=== PATIENT | male | born 1955 | race Caucasian/White ===

== ENCOUNTER → 2024-10-07 | Outpatient (CLI) | payer MEDICARE, MEDICAID, SELFPAY ==
[2024-10-07 16:07] LABS: Alanine Aminotransferase 11 U/L (10-49); Albumin, Serum 4.2 gm/dL (3.4-4.8); Albumin/Globulin Ratio 1.6 (1.2-2.2); Alkaline Phosphatase 110 U/L (46-116); Anion Gap 9 (7-16); Aspartate Amino Transferase 20 U/L (0-34); BUN/Creatinine Ratio 12 Ratio (12-20); Bilirubin,Total 0.4 mg/dL (0.3-1.2); Blood Urea Nitrogen 13 mg/dL (9-23); Calcium 9.9 mg/dL (8.3-10.6); Calcium (Corrected) 9.9 mg/dL (8.5-10.1); Carbon Dioxide 24.4 mMol/L (20.0-31.0); Chloride 109 mMol/L (98-107); Creatinine (Component) 1.1 mg/dL (0.6-1.3); Globulin 2.6 gm/dL (2.3-3.5); Glucose 85 mg/dL (74-106); Osmolality,Calculated 282 (275-295); Potassium 3.8 mMol/L (3.4-5.1); Sodium 142 mMol/L (136-145); Total Protein 6.8 gm/dL (5.7-8.2); eGFR > 60 See Note
== END | disposition home or self-care (01) ==
LOC: COPL 15:15
PROVIDERS: PCP Nurse Practitioner Family; Referring Provider Nurse Practitioner Family; Visit Provider Nurse Practitioner Family
DX: Z01.812 Encounter for preprocedural laboratory examination (principal)
CPT/HCPCS: 36415; 80053

== ENCOUNTER → 2024-10-08 | Outpatient (CLI) | payer MEDICARE, MEDICAID, SELFPAY ==
--- NOTE | 2024-10-08 | XR_ITS ---
Examination: CT abdomen with intravenous contrast CT pelvis with intravenous contrast 2-D coronal reconstructions 2-D sagittal reconstructions Date and time of exam:September 28, 2024 1156 hours Comparison November 10, 2023 INDICATIONS: Diagnosis of ulcerative colitis 2 years ago, hematuria and elevated PSA the last months. CTDI: vol (mGy) 10.3 DLP: (mGycm) 6 7060 Technique: Multiple axial sections of the abdomen and pelvis have been obtained. 64 slice high-resolution scanner used. 3 mm axial sections have been obtained, post intravenous injection 60 cc [id number] 2-D sagittal, coronal reconstructions obtained. Low dose protocols were performed. One or more of the following dose reduction techniques were used; automated exposure control, adjustment of the mA and/or KV according to patient size, use of iterative reconstruction technique. Findings: No focal liver or splenic lesions Absent gallbladder No pancreatic or adrenal mass No renal or ureteral calculi, no hydronephrosis Aorta normal size No bowel obstruction Normal appendix No diverticulitis Fat deposition in the colonic booth consistent with prior nonspecific colitis Transverse prostate dimension 4.2 cm Intact urinary bladder Significant osteopenia IMPRESSION: No renal or ureteral calculi, no hydronephrosis Findings of prior nonspecific diffuse colitis pattern
== END | disposition home or self-care (01) ==
LOC: CCTX 10:23
PROVIDERS: Referring Provider Nurse Practitioner Family; Visit Provider Nurse Practitioner Family
DX: D64.9 Anemia, unspecified (principal)
CPT/HCPCS: 74177; A4649; Q9967

== ENCOUNTER 2024-11-14 12:43 | Emergency (ER) | payer MEDICARE, MEDICAID, SELFPAY ==
--- NOTE | 2024-11-14 13:06 | XR_ITS ---
Examination: CT brain head without contrast. 2-D sagittal coronal reconstructions Date and time of exam:November 14, 2024 1432 hours COMPARISON: August 18, 2023 INDICATIONS: Headaches dizziness today, history CVA CTDI: vol (mGy):49.4 DLP: (mGycm):1024 Technique: Multiple CT axial sections of the brain have been obtained, 5 mm slice thickness. Contrast has not been administered. 2-D sagittal, coronal reconstructions have been obtained Low dose protocols were performed. One or more of the following dose reduction techniques were used; automated exposure control, adjustment of the mA and/or KV according to patient size, use of iterative reconstruction technique. Findings: No significant ventricular enlargement. Intra-axial or extra-axial hemorrhage density is not seen. No mass effect or midline shift Basal cisterns are not remarkable. Fourth ventricle is midline. Cranial vault intact. Impression: Negative for acute hemorrhage, mass effect or midline shift Clinical correlation advised and follow-up accordingly
--- NOTE | 2024-11-14 13:06 | EKG_ITS ---
[facility] Test Date: 2024-11-14 Pat Name: NINA HOUSER Department: Room: - Gender: Male Tax Expert: : 1955 Requested By: Andres Ingram (LAMINATING MACHINE OFFBEARER) Order Number: [id number] Reading MD: Andres Ingram (LAMINATING MACHINE OFFBEARER) Measurements Intervals Normanna Rate: 66 P: 14 WV: 173 QRS: -28 QRSD: 105 T: 33 QT: 378 QTc: 398 Interpretive Statements SINUS RHYTHM BORDERLINE LEFT AXIS DEVIATION [QRS AXIS < -20] VOLTAGE CRITERIA FOR LVH [MEETS CRITERIA IN ONE OF: R(aVL), S(V1), R(V5), R(V5/V6)+S(V1)] NONSPECIFIC T-WAVE ABNORMALITY Compared to ECG 08/18/2023 15:23:01 Sinus tachycardia no longer present Possible ischemia no longer present T-wave abnormality still present /store/S0/[id number]/ecg/[id number].pdf
--- NOTE | 2024-11-14 13:06 | XR_ITS ---
Examination: PA lateral chest 2 views TECHNIQUE: Upright PA lateral chest 2 views Exam date and time: November 14, 2024 1316 hours INDICATIONS: Chest pain dizziness today. FINDINGS: Normal heart size No pneumonia Mild accentuation basilar bronchovascular markings Stable small granuloma in the right upper lobe IMPRESSION: Mild basilar bronchitis pattern
[2024-11-14 13:09] VITALS: BP 150/85; PULSE 78; RESP 20; TEMP 36.7; O2SAT 95; BMI 31.6
--- NOTE | 2024-11-14 13:09 | PD.EDRME ---
Rapid Medical Screening Exam RME Arrival date/time: 11/14/24 12:43 68-year-old male presents emergency department with complaints of dizziness and elevated BP since Monday patient was seen by PCP and referred to the ER for further evaluation Chief Complaint: Dizziness
[2024-11-14 13:31] LABS: Basophils # (Auto) 0.1 Thou/mm3 (0.0-0.2); Basophils % (Auto) 1 % (0-2.5); Eosinophils # (Auto) 0.2 Thou/mm3 (0.0-0.5); Eosinophils % (Auto) 2 % (0-10); Hematocrit 41.5 % (41.0-53.0); Hemoglobin 12.9 g/dL (13.5-16.0); Immature Granulocytes % (Auto) 1 % (0-0); Immature Granulocytes Auto 0.05 Thou/mm3 (0.00-0.00); Lymphocytes # (Auto) 2.7 Thou/mm3 (1.0-4.8); Lymphocytes % (Auto) 25 % (10-50); Mean Corpuscular HGB Conc 31.1 g/dl (31.0-37.0); Mean Corpuscular Hemoglobin 24.6 pg (25.0-35.0); Mean Corpuscular Volume 79 fL (80-100); Monocytes # (Auto) 0.8 Thou/mm3 (0.0-0.8); Monocytes % (Auto) 8 % (0-12); Neutrophils % (Auto) 64 % (37-80); Nucleated Red Blood Cell % 0 /100 WBC (0); Platelet Count 305 Thou/mm3 (140-440); RDW Standard Deviation 57.1 fL (35.1-43.9); Red Blood Count 5.24 Miln/mm3 (4.50-5.90); White Blood Count 10.8 Thou/mm3 (3.8-10.6)
[2024-11-14 13:45] LABS: Partial Thromboplastin Time 29.8 Seconds (22.0-36.0); Prothrombin Time 10.9 Seconds (9.0-12.2)
[2024-11-14 13:48] LABS: B-Type Natriuretic Peptide < 20 pg/mL (0-100)
[2024-11-14 13:50] LABS: Alanine Aminotransferase 13 U/L (10-49); Albumin, Serum 4.5 gm/dL (3.4-4.8); Albumin/Globulin Ratio 1.6 (1.2-2.2); Alkaline Phosphatase 99 U/L (46-116); Anion Gap 9 (7-16); Aspartate Amino Transferase 24 U/L (0-34); BUN/Creatinine Ratio 13 Ratio (12-20); Bilirubin,Total 0.6 mg/dL (0.3-1.2); Blood Urea Nitrogen 15 mg/dL (9-23); Calcium 10.4 mg/dL (8.3-10.6); Calcium (Corrected) 10.4 mg/dL (8.5-10.1); Carbon Dioxide 27.5 mMol/L (20.0-31.0); Chloride 105 mMol/L (98-107); Creatinine (Component) 1.2 mg/dL (0.6-1.3); Estimated Creatinine Clearance 66.8 mL/min (>60); Globulin 2.9 gm/dL (2.3-3.5); Glucose 109 mg/dL (74-106); Magnesium 2.1 mg/dL (1.6-2.6); Osmolality,Calculated 283 (275-295); Sodium 141 mMol/L (136-145); Total Protein 7.4 gm/dL (5.7-8.2); Troponin I < 0.020 ng/mL (0.0-0.045); eGFR > 60 See Note
[2024-11-14 14:15] LABS: Amphetamine/Methamp Scrn,U Negative (Negative); Barbiturate Screen,Urine Negative (Negative); Benzodiazepines Screen,Urine Negative (Negative); Benzoylecgonine Screen, Ur Negative (Negative); Fentanyl Screen,Urine Negative (Negative); Opiate Screen,Urine Negative (Negative); THC Screen,Urine Negative (Negative)
[2024-11-14 16:37] VITALS: BP 170/83; PULSE 78; RESP 16; TEMP 36.5; O2SAT 96
--- NOTE | 2024-11-14 17:00 | EDNOTE_ITS ---
ED Dizzyness RME/HPI General Chief Complaint: Dizziness Stated Complaint: DIZZY X MONDAY WITH ELEVATED BP Time Seen by Provider: 11/14/24 16:56 Arrival date/time: 11/14/24 12:43 RME / HPI RME / HPI Narrative: 68-year-old male patient with significant history of hypertension, came in for evaluation regarding intermittent dizziness. Onset of symptoms since Monday as on and off dizziness, described as everything spinning, lasting for several minutes. Patient is also worried because his blood pressure is slightly elevated. Denies any headache denies any chest pain denies any neck pain. Was seen by PCP and referred here for further evaluation. Patient is ambulatory denies any head trauma or fall. Denies any fever. Related Data Home Medications ?Medication ?Instructions ?Recorded ?Confirmed Amlodipine Besylate 10 mg PO QDAY ##30 03/22/16 08/05/24 carvedilol 3.125 mg tablet 3.125 mg PO BID 12/06/21 08/05/24 folic acid 1 mg tablet 1 mg PO DAILY 08/19/23 08/05/24 atorvastatin 40 mg tablet 80 mg PO DAILY 07/11/24 08/05/24 ferrous sulfate 325 mg (65 mg 325 mg PO TID 08/05/24 08/05/24 iron) tablet Previous Rx's ?Medication ?Instructions ?Recorded azathioprine 50 mg tablet (Imuran) 50 mg PO BID #60 tabs 12/06/21 sulfasalazine 500 mg 1 g (2 x 500 mg) PO BID #120 tabs 12/06/21 tablet,delayed release prednisone 5 mg tablet See Taper PO QDAY #94 tabs 08/21/23 lisinopril 20 mg tablet 20 mg PO QDAY #30 tabs 07/11/24 dutasteride 0.5 mg-tamsulosin ER 1 cap PO QDAY #30 caps 08/05/24 0.4 mg capsule ext.release 24hr mphas dutasteride 0.5 mg capsule 0.5 mg PO QDAY #90 caps 08/08/24 tamsulosin 0.4 mg capsule 0.4 mg PO QDAY #90 caps 08/08/24 furosemide 40 mg tablet (Lasix) 40 mg PO QAM #90 tabs 08/28/24 meclizine 50 mg tablet 50 mg PO BID PRN dizziness #20 tabs 11/14/24 Allergies Allergy/AdvReac Type Severity Reaction Status Date / Time No Known Allergies Allergy Verified 11/14/24 12:45 Review of Systems Review of Systems Narrative Review of Systems: Review of system reviewed and within normal limits except mentioned in HPI ED Exam Narrative Physical exam: VITAL SIGNS: Reviewed. GENERAL APPEARANCE: Alert and interactive, follows commands, no acute distress, HEAD AND FACE: Non-traumatic. ENT: PERRL, pink conjunctivitis, eyelid no trauma, Mucous membrane moist. NECK: Supple, nontender, no nuchal rigidity. CHEST: No tenderness, no crepitus, no paradoxical movement, no retractions. LUNGS: Clear, well ventilated, symmetric, no rales, no wheezing, no ronchi, no stridor, good breath sounds bilaterally. HEART: Regular rate, regular rhythm, no murmur, no gallops. ABDOMEN: Soft, positive bowel sounds, nondistended, no guarding, nontender, no rebound, no masses, RECTAL: Deferred. GENITAL: Deferred. NEUROLOGICAL: Gross motor function intact sensory function intact, Appropriate for age. MUSCULOSKELETAL: low back nontender, full range of motion. EXTREMITIES: Nontender, full range of motion. SKIN: Color pink, dry, no rash, no lacerations, no abrasions, no contusions. LYMPHATICS: Deferred. Course Quality Measures none Orders Category Date Time Status EKG (ED ONLY) *Do not use* NOW Care 11/14/24 13:[address] head/brain wo con Stat Exams 11/14/24 13:06 Completed EKG (ED Only) Stat Exams 11/14/24 13:06 Draft XR chest 2V Stat Exams 11/14/24 13:06 Completed B-Type Natriuretic Peptide Stat Lab 11/14/24 13:13 Completed CBC Stat Lab 11/14/24 13:13 Completed Comprehensive Metabolic Panel Stat Lab 11/14/24 13:13 Completed Drug Screen,Urine Stat Lab 11/14/24 13:33 Completed Magnesium Stat Lab 11/14/24 13:13 Completed Partial Thromboplastin Time Stat Lab 11/14/24 13:13 Completed Prothrombin Time with INR Stat Lab 11/14/24 13:13 Completed Troponin I Stat Lab 11/14/24 13:13 Completed Vital Signs Vital signs: Vital Signs Temperature 98.1 F 11/14/24 13:09 Pulse Rate 78 11/14/24 13:09 Respiratory Rate 20 11/14/24 13:09 Blood Pressure 150/85 H 11/14/24 13:09 Pulse Oximetry (%) 95 11/14/24 13:09 Oxygen Delivery Method Room Air 11/14/24 13:09 Dizziness MDM Narrative MDM Narrative:: 68-year-old male patient with significant history of hypertension, came in for evaluation regarding intermittent dizziness. Onset of symptoms since Monday as on and off dizziness, described as everything spinning, lasting for several minutes. Patient is also worried because his blood pressure is slightly elevated. Denies any headache denies any chest pain denies any neck pain. Was seen by PCP and referred here for further evaluation. Patient is ambulatory den ies any head trauma or fall. Denies any fever. CT scan of the head came back unremarkable. Patient's workup also today came back normal. Troponin was not normal. Chest x-ray came back unremarkable. Patient data External records reviewed:: None Clinical information provided by:: patient Social determinants that could affect healthcare access:: none Patient has the following chronic illnesses:: Hypertension How is presenting disease/condition affected by chronic disease/condition?: exacerbated by Evaluation data The following diagnostics were reviewed and interpreted by me:: radiology exam(s) Lab and/or radiology exams considered but not ordered:: None Interpretation Summary: Patient's workup today all came back unremarkable CT scan of the head came back unremarkable EKG as interpreted by me showed normal sinus rhythm, ventricular rate of 66 bpm, no ST segment elevation depression noted. Chest x-ray showed possible bronchitis pattern no infiltrates no pneumothorax pneumothorax noted. Medications / Prescriptions Medications or Prescriptions considered but not ordered:: None none Medication administrations:: None Consultations Consultation(s) initiated? (list below): No Diagnosis Dizziness Differential Diagnosis: benign paroxysmal positional vertigo and cerebrovascular accident Most likely diagnosis given after review of the tests above:: Dizziness, hypertension Admission Indicated Admission indicated?: not indicated Admission Request Was there a request for admission?: No Disposition Plan Disposition Plan: Discharge Discharge Attestation Discharge Attestation: The patient was given an opportunity to ask questions and understood the discharge instructions. Discharge instructions specifically effects, indications for sooner follow up or return to the emergency department, and the expected course of current diagnosis. Patient condition: Stable Discharge Plan Plan Patient Disposition: HOME (Self Care) Disposition Comment: stable Prescriptions/Referrals Prescriptions/Med Rec: New meclizine 50 mg tablet 50 mg PO BID PRN (Reason: dizziness) Qty: 20 0RF No Action ferrous sulfate 325 mg (65 mg iron) tablet 325 mg PO TID dutasteride-tamsulosin 0.5-0.4 mg capsule, ER multiphase 24 hr 1 cap PO QDAY Qty: 30 0RF dutasteride 0.5 mg capsule 0.5 mg PO QDAY Qty: 90 0RF tamsulosin 0.4 mg capsule 0.4 mg PO QDAY Qty: 90 0RF lisinopril 20 mg tablet 20 mg PO QDAY Qty: 30 0RF Rx Instructions: 20 MG PO QDAY Amlodipine Besylate 10 mg tablet 10 mg PO QDAY Qty: 30 Rx Instructions: 10 mg PO QDAY furosemide [Lasix] 40 mg tablet 40 mg PO QAM Qty: 90 0RF carvedilol 3.125 mg tablet 3.125 mg PO BID Patient Comments: TAKE 1 TABLET BY MOUTH TWICE A DAY sulfasalazine 500 mg Tablet,Delayed Release (Dr/Ec) 1 g PO BID Qty: 120 3RF Rx Instructions: Take 2 tabs by mouth twice daily azathioprine [Imuran] 50 mg Tablet 50 mg PO BID Qty: 60 3RF Rx Instructions: 50 mg PO BID folic acid 1 mg Tablet 1 mg PO DAILY prednisone 5 mg tablet See Taper PO QDAY Qty: 94 0RF Taper: Prednisone Taper 15 mg TWICE A DAY for 7 Days and 0 Hour 10 mg TWICE A DAY for 7 Days and 0 Hour 5 mg TWICE A DAY for 7 Days and 0 Hour 5 mg DAILY for 7 Days 2.5 mg DAILY for 7 Days atorvastatin 40 mg tablet 80 mg PO DAILY Referrals: No Primary/Family,Physician [Primary Care Provider] - In 1 week Problem List Clinical Impression: Dizziness, Hypertension Patient/Caregiver Discharge Instructions Discharge Activity: activity as tolerated Education Materials: Vertigo Medicine Tx Additional Instructions: Thank you for the opportunity for serving you today. You are stable for discharged . You are advised to: Follow-up with your PCP in 1 to 2 days Return to ED for worsening of symptoms Increase oral fluids Take medication as prescribed Print Language: [place] Stand Alone Forms: Lee Ann Award Info., Patient Portal Info Letter
== END 2024-11-14 18:54 | disposition home or self-care (01) ==
PROVIDERS: Nurse Practitioner Primary Care; Emergency Provider Emergency Medicine
DX: R42 Dizziness and giddiness (principal); R51.9 Headache, unspecified; R07.9 Chest pain, unspecified; I10 Essential (primary) hypertension; R94.31 Abnormal electrocardiogram [ECG] [EKG]
CPT/HCPCS: 36415; 70450; 71046; 80053; 80307; 83735; 83880; 84484; 85025; 85610; 85730; 93005; 99284

== ENCOUNTER → 2024-11-14 | Outpatient (BNVA) | payer MEDICARE, MEDICAID, SELFPAY | END | disposition home or self-care (01) | PROVIDERS: PCP Nurse Practitioner Family; Referring Provider Nurse Practitioner Family; Visit Provider Nurse Practitioner Family | DX: R42 Dizziness and giddiness (principal) | CPT/HCPCS: 93005; 99214 ==

== ENCOUNTER → 2024-11-18 | Outpatient (BNVA) | payer MEDICARE, MEDICAID, SELFPAY | END | disposition home or self-care (01) | PROVIDERS: PCP Nurse Practitioner Family; Referring Provider Nurse Practitioner Family; Visit Provider Nurse Practitioner Family | DX: I10 Essential (primary) hypertension (principal); D50.9 Iron deficiency anemia, unspecified; R73.03 Prediabetes; E78.5 Hyperlipidemia, unspecified; Z76.89 Persons encountering health services in other specified circumstances | CPT/HCPCS: 99213 ==

== ENCOUNTER → 2025-01-29 | Outpatient (BNVA) | payer MEDICARE, MEDICAID, SELFPAY | END | disposition home or self-care (01) | PROVIDERS: PCP Nurse Practitioner Family; Referring Provider Nurse Practitioner Family; Visit Provider Nurse Practitioner Family | DX: I11.0 Hypertensive heart disease with heart failure (principal); I50.9 Heart failure, unspecified; Z79.899 Other long term (current) drug therapy | CPT/HCPCS: 99212; G0463 ==

== ENCOUNTER → 2025-04-03 | Outpatient (CLI) | payer MEDICARE, MEDICAID, SELFPAY ==
[2025-04-03 09:53] LABS: Basophils % (Auto) 0 % (0-2.5); Eosinophils % (Auto) 0 % (0-10); Hematocrit 49.9 % (41.0-53.0); Hemoglobin 16.8 g/dL (13.5-16.0); Immature Granulocytes % (Auto) 1 % (0-0); Immature Granulocytes Auto 0.09 Thou/mm3 (0.00-0.00); Lymphocytes # (Auto) 1.1 Thou/mm3 (1.0-4.8); Lymphocytes % (Auto) 9 % (10-50); Mean Corpuscular HGB Conc 33.7 g/dl (31.0-37.0); Mean Corpuscular Hemoglobin 31.9 pg (25.0-35.0); Mean Corpuscular Volume 95 fL (80-100); Monocytes # (Auto) 0.6 Thou/mm3 (0.0-0.8); Monocytes % (Auto) 5 % (0-12); Neutrophils # (Auto) 10.5 Thou/mm3 (1.8-7.7); Neutrophils % (Auto) 85 % (37-80); Nucleated Red Blood Cell % 0 /100 WBC (0); Platelet Count 205 Thou/mm3 (140-440); RDW Standard Deviation 62.1 fL (35.1-43.9); Red Blood Count 5.26 Miln/mm3 (4.50-5.90); White Blood Count 12.3 Thou/mm3 (3.8-10.6)
[2025-04-03 10:07] LABS: Alanine Aminotransferase 54 U/L (10-49); Albumin, Serum 4.4 gm/dL (3.4-4.8); Albumin/Globulin Ratio 1.9 (1.2-2.2); Alkaline Phosphatase 82 U/L (46-116); Amylase 73 U/L (30-118); Anion Gap 11 (7-16); BUN/Creatinine Ratio 20 Ratio (12-20); Blood Urea Nitrogen 22 mg/dL (9-23); Calcium 9.5 mg/dL (8.3-10.6); Calcium (Corrected) 9.5 mg/dL (8.5-10.1); Carbon Dioxide 24.1 mMol/L (20.0-31.0); Chloride 106 mMol/L (98-107); Creatinine (Component) 1.1 mg/dL (0.6-1.3); Globulin 2.3 gm/dL (2.3-3.5); Glucose 130 mg/dL (74-106); Lipase 43 U/L (12-53); Osmolality,Calculated 286 (275-295); Potassium 4.4 mMol/L (3.4-5.1); Sodium 141 mMol/L (136-145); Total Protein 6.7 gm/dL (5.7-8.2); eGFR > 60 See Note
[2025-04-03 16:43] LABS: Collection Type, Urine Clean Catch
[2025-04-03 17:46] LABS: Bilirubin,Urine Negative (Negative); Blood,Urine Negative (Negative); Clarity,Urine Clear (Clear/Hazy); Color,Urine Drk-Yellow (Lt Yel-Yel); Glucose, Urine Negative (Negative); Ketones,Urine Negative (Negative); Leukocyte Esterase,Urine Positive (Negative); Nitrite,Urine Negative (Negative); PH,Urine 5.5 (5.0-7.0); Protein,Urine Negative (Neg - Trace); RBC,Urine 1 /hpf (0-3); Specific Gravity,Urine 1.029 (1.001-1.035); Squamous Epithelial Cell,Urine 1 /hpf (0-5); Urobilinogen,Urine Negative mg/dL (0.0-1.0); WBC,Urine 4 /hpf (0-5)
== END | disposition home or self-care (01) ==
LOC: COPL 08:32
PROVIDERS: PCP Nurse Practitioner Family; Referring Provider Specialist; Visit Provider Specialist
DX: R14.0 Abdominal distension (gaseous) (principal); R10.9 Unspecified abdominal pain; R10.13 Epigastric pain; R19.4 Change in bowel habit; R19.7 Diarrhea, unspecified
CPT/HCPCS: 36415; 80053; 81001; 82150; 83690; 85025; 87015; 87045; 87046; 87493; 87899

== ENCOUNTER → 2025-04-09 | Outpatient (BNVA) | payer MEDICARE, MEDICAID, SELFPAY | END | disposition home or self-care (01) | PROVIDERS: PCP Nurse Practitioner Family; Referring Provider Nurse Practitioner Family; Visit Provider Nurse Practitioner Family | DX: Z71.2 Person consulting for explanation of examination or test findings (principal); I10 Essential (primary) hypertension; R73.03 Prediabetes; E78.5 Hyperlipidemia, unspecified; N40.0 Benign prostatic hyperplasia without lower urinary tract symptoms; K51.919 Ulcerative colitis, unspecified with unspecified complications; I11.0 Hypertensive heart disease with heart failure; I50.9 Heart failure, unspecified; R79.9 Abnormal finding of blood chemistry, unspecified; Z79.899 Other long term (current) drug therapy | CPT/HCPCS: 99212; G0463 ==

== ENCOUNTER → 2025-04-16 | Outpatient (CLI) | payer MEDICARE, MEDICAID, SELFPAY ==
[2025-04-16 09:20] VITALS: BP 154/104; PULSE 102; RESP 20; TEMP 36.6; O2SAT 95
[2025-04-16 09:27] VITALS: BMI 29.8
[2025-04-16] MEDS: STERILE WATER IV (10:07)
[2025-04-16] MEDS: [UNRECOGNIZED DRUG - OTHER] IV (10:07)
[2025-04-16] MEDS: INFLIXIMAB DYYB IV (10:07)
[2025-04-16 13:00] VITALS: BP 164/91; PULSE 67; RESP 20; TEMP 36.8; O2SAT 96
== END | disposition home or self-care (01) ==
PROVIDERS: PCP Nurse Practitioner Family; Referring Provider Specialist; Visit Provider Specialist
PROC: (CPT 96365; principal; 2025-04-16 09:30)
DX: K58.0 Irritable bowel syndrome with diarrhea (principal); K52.9 Noninfective gastroenteritis and colitis, unspecified
CPT/HCPCS: 96365; 96366; A4216; J7050; Q5103

== ENCOUNTER → 2025-04-30 | Outpatient (CLI) | payer MEDICARE, MEDICAID, SELFPAY ==
[2025-04-30 09:48] VITALS: BP 144/84; PULSE 105; RESP 16; TEMP 36.7; O2SAT 95; BMI 33.7
[2025-04-30] MEDS: STERILE WATER IV (09:59)
[2025-04-30] MEDS: INFLIXIMAB DYYB IV (09:59)
[2025-04-30] MEDS: [UNRECOGNIZED DRUG - OTHER] IV (09:59)
[2025-04-30 12:32] VITALS: BP 134/81; PULSE 86; RESP 16; TEMP 36.6; O2SAT 96
== END | disposition home or self-care (01) ==
LOC: SFLEX 09:25
PROVIDERS: PCP Nurse Practitioner Family; Referring Provider Specialist; Visit Provider Specialist
PROC: (CPT 96365; principal; 2025-04-30 09:30)
DX: K58.0 Irritable bowel syndrome with diarrhea (principal); K52.9 Noninfective gastroenteritis and colitis, unspecified
CPT/HCPCS: 96365; 96366; A4216; J7050; Q5103

== ENCOUNTER → 2025-05-14 | Outpatient (CLI) | payer MEDICARE, MEDICAID, SELFPAY ==
[2025-05-14 09:58] VITALS: BP 131/84; PULSE 93; RESP 16; TEMP 36.4; O2SAT 95; BMI 32.7
[2025-05-14] MEDS: [UNRECOGNIZED DRUG - OTHER] IV (10:24)
[2025-05-14] MEDS: STERILE WATER IV (10:24)
[2025-05-14] MEDS: INFLIXIMAB DYYB IV (10:24)
[2025-05-14 12:54] VITALS: BP 152/81; PULSE 64; RESP 18; TEMP 36.2; O2SAT 95
== END | disposition home or self-care (01) ==
LOC: SFLEX 09:43
PROVIDERS: Referring Provider Specialist; Visit Provider Specialist
PROC: (CPT 96365; principal; 2025-05-14 09:30)
DX: K58.0 Irritable bowel syndrome with diarrhea (principal); K52.9 Noninfective gastroenteritis and colitis, unspecified
CPT/HCPCS: 96365; 96366; A4216; J7050; Q5103

== ENCOUNTER → 2025-06-12 | Outpatient (CLI) | payer MEDICARE, MEDICAID, SELFPAY ==
[2025-06-12] MEDS: FILTER MICRON CONICAL IV (09:30)
[2025-06-12] MEDS: INFLIXIMAB IV (09:30)
[2025-06-12] MEDS: [UNRECOGNIZED DRUG - OTHER] IV (09:30)
[2025-06-12] MEDS: STERILE WATER IV (09:30)
[2025-06-12 09:35] VITALS: BP 162/96; PULSE 88; RESP 20; TEMP 36.6; O2SAT 95; BMI 33.9
[2025-06-12 11:25] VITALS: BP 162/85; PULSE 70; RESP 14; TEMP 36.7; O2SAT 95
== END | disposition home or self-care (01) ==
LOC: SFLEX 08:58
PROVIDERS: Referring Provider Specialist; Visit Provider Specialist
PROC: (CPT 96365; principal; 2025-06-12 09:00)
DX: K58.0 Irritable bowel syndrome with diarrhea (principal); K52.9 Noninfective gastroenteritis and colitis, unspecified
CPT/HCPCS: 96365; 96366; A4216; J1745; J7050

== ENCOUNTER → 2025-07-01 | Outpatient (CLI) | payer MEDICARE, MEDICAID, SELFPAY ==
[2025-07-01 10:15] LABS: Basophils # (Auto) 0.0 Thou/mm3 (0.0-0.2); Basophils % (Auto) 0 % (0-2.5); Eosinophils # (Auto) 0.0 Thou/mm3 (0.0-0.5); Eosinophils % (Auto) 0 % (0-10); Hematocrit 48.3 % (41.0-53.0); Hemoglobin 16.4 g/dL (13.5-16.0); Immature Granulocytes Auto 0.10 Thou/mm3 (0.00-0.00); Lymphocytes # (Auto) 1.8 Thou/mm3 (1.0-4.8); Lymphocytes % (Auto) 13 % (10-50); Mean Corpuscular HGB Conc 34.0 g/dl (31.0-37.0); Mean Corpuscular Hemoglobin 34.5 pg (25.0-35.0); Mean Corpuscular Volume 102 fL (80-100); Monocytes # (Auto) 0.7 Thou/mm3 (0.0-0.8); Monocytes % (Auto) 5 % (0-12); Neutrophils # (Auto) 10.8 Thou/mm3 (1.8-7.7); Neutrophils % (Auto) 80 % (37-80); Nucleated Red Blood Cell # 0.00 Thou/mm3 (0.00-0.00); Nucleated Red Blood Cell % 0 /100 WBC (0); Platelet Count 250 Thou/mm3 (140-440); RDW Standard Deviation 51.2 fL (35.1-43.9); Red Blood Count 4.75 Miln/mm3 (4.50-5.90); White Blood Count 13.5 Thou/mm3 (3.8-10.6)
[2025-07-01 10:40] LABS: Alanine Aminotransferase 23 U/L (10-49); Albumin, Serum 4.0 gm/dL (3.4-4.8); Albumin/Globulin Ratio 1.4 (1.2-2.2); Alkaline Phosphatase 93 U/L (46-116); Anion Gap 11 (7-16); Aspartate Amino Transferase 17 U/L (0-34); BUN/Creatinine Ratio 16 Ratio (12-20); Bilirubin,Total 0.7 mg/dL (0.3-1.2); Blood Urea Nitrogen 19 mg/dL (9-23); C-Reactive Protein < 0.5 mg/dL (0.0-0.9); Calcium 10.3 mg/dL (8.3-10.6); Calcium (Corrected) 10.3 mg/dL (8.5-10.1); Carbon Dioxide 25.8 mMol/L (20.0-31.0); Chloride 108 mMol/L (98-107); Creatinine (Component) 1.2 mg/dL (0.6-1.3); Globulin 2.8 gm/dL (2.3-3.5); Glucose 110 mg/dL (74-106); Osmolality,Calculated 291 (275-295); Potassium 4.6 mMol/L (3.4-5.1); Sodium 145 mMol/L (136-145); Total Protein 6.8 gm/dL (5.7-8.2); eGFR > 60 See Note
== END | disposition home or self-care (01) ==
LOC: COPL 09:26
PROVIDERS: PCP Nurse Practitioner Family; Referring Provider Specialist; Visit Provider Specialist
DX: E78.5 Hyperlipidemia, unspecified (principal)
CPT/HCPCS: 36415; 80053; 85025; 86140

== ENCOUNTER → 2025-08-05 | Outpatient (BNVA) | payer MEDICARE, MEDICAID, SELFPAY | END | disposition home or self-care (01) | PROVIDERS: PCP Nurse Practitioner Family; Referring Provider Nurse Practitioner Family; Visit Provider Nurse Practitioner Family | DX: Z00.01 Encounter for general adult medical examination with abnormal findings (principal); R06.02 Shortness of breath; I50.9 Heart failure, unspecified; Z86.73 Personal history of transient ischemic attack (TIA), and cerebral infarction without residual deficits; K51.919 Ulcerative colitis, unspecified with unspecified complications; E78.5 Hyperlipidemia, unspecified; I25.2 Old myocardial infarction; I11.0 Hypertensive heart disease with heart failure; E66.9 Obesity, unspecified; Z13.1 Encounter for screening for diabetes mellitus; Z11.3 Encounter for screening for infections with a predominantly sexual mode of transmission; N40.0 Benign prostatic hyperplasia without lower urinary tract symptoms; Z28.21 Immunization not carried out because of patient refusal; Z68.34 Body mass index [BMI] 34.0-34.9, adult | CPT/HCPCS: 93005; 99173; 99214 ==